=== PATIENT | female | born 2000 | race Caucasian/White ===

== ENCOUNTER 2018-05-08 00:48 | Emergency (ER) | payer BC ==
[~2018-05-08] VITALS: Ht 167.6 cm; Wt 97.7 kg
[2018-05-08 01:01] VITALS: BP 128/82; TEMP 98.6
[2018-05-08 02:09] VITALS: PULSE 110
== END 2018-05-08 02:09 | disposition home or self-care (01) ==
LOC: COL.ER 00:48
DX: N61.0 Mastitis without abscess (principal)

== ENCOUNTER → 2020-04-11 | Outpatient (CLI) | payer BC | LOC: COL.LAB 17:25 | DX: Z20.828 Contact with and (suspected) exposure to other viral communicable diseases (principal) ==

== ENCOUNTER 2020-06-08 00:02 | Emergency (ER) | payer BC ==
[~2020-06-08] VITALS: Ht 167.6 cm; Wt 113.6 kg
[2020-06-08 00:11] VITALS: TEMP 98.2
[2020-06-08 01:31] VITALS: BP 134/85; PULSE 105
== END 2020-06-08 01:35 | disposition home or self-care (01) ==
LOC: COL.ER 00:02
DX: R04.0 Epistaxis (principal)

== ENCOUNTER 2020-10-29 06:19 | Emergency (ER) | payer BC ==
[~2020-10-29] VITALS: Ht 167.6 cm; Wt 109.1 kg
[2020-10-29 06:24] VITALS: TEMP 97.8
[2020-10-29] MEDS ORDERED: CELEXA 20MG20 MG/TAB PO (06:27)
[2020-10-29] MEDS ORDERED: LEVBID0.375 MG PO (06:27)
[2020-10-29] MEDS ORDERED: VYVANSE40 MG PO (06:27)
[2020-10-29 07:52] LABS: STREP SCREEN NEGATIVE
[2020-10-29 08:08] LABS: BASO # 0.1 (0.0-0.2); BASO % 0.5 % (0.0-2.0); EOS # 0.3 (0.0-0.7); EOS % 1.7 % (0-4.0); GRAN % 81.1 % (42.2-75.2); HEMATOCRIT 44.6 % (37.0-47.0); HEMOGLOBIN 14.9 g/dl (12.5-16.0); LYMPH # 1.9 (1.2-3.4); LYMPH % 11.1 % (20.0-51.0); MEAN CELL VOLUME 89 fl (80.0-100.0); MEAN CORPUSCULAR HEMOGLOBIN 30 pg (27.0-31.0); MEAN CORPUSCULAR HGB CONC 33 g/dl (33.0-37.0); MEAN PLATELET VOLUME 9.9 fl (7.4-10.4); MONO # 0.9 (0.1-0.6); PLATELET COUNT 294 K/mm3 (130-400); RED BLOOD COUNT 5.02 M/mm3 (4.10-5.30); REDCELL DISTRIBUTION WIDTH-CV 13.2 % (11.5-14.5)
[2020-10-29 08:16] LABS: CALCIUM 8.7 mg/dL (8.4-10.2); CREATININE, serum 0.62 (0.52-1.25); POTASSIUM 3.8 mmol/L (3.4-5.0)
[2020-10-29] MEDS ORDERED: NAPROXEN 3375 MG/TAB PO (09:02)
[2020-10-29] MEDS ORDERED: ATIVAN 1MG T1 MG/TAB PO (09:02)
[2020-10-29] MEDS ORDERED: VENTOLIN0.09 MG IH (09:02)
[2020-10-29 09:06] VITALS: BP 146/94; PULSE 114
== END 2020-10-29 09:15 | disposition home or self-care (01) ==
LOC: COL.ER 06:19
PROVIDERS: Emergency Medicine
DX: B34.9 Viral infection, unspecified (principal); F17.290 Nicotine dependence, other tobacco product, uncomplicated; Z20.822 Contact with and (suspected) exposure to COVID-19; Z88.1 Allergy status to other antibiotic agents
CPT/HCPCS: J1100

== ENCOUNTER 2021-05-27 11:07 | Emergency (ER) | payer BC ==
[~2021-05-27] VITALS: Ht 167.6 cm; Wt 97.7 kg
[~2021-05-27 11:07] MED LIST: ATIVAN 1MG T1 MG/TAB PO; CELEXA 20MG20 MG/TAB PO; LEVBID0.375 MG PO; NAPROXEN 3375 MG/TAB PO; VENTOLIN0.09 MG IH; VYVANSE40 MG PO
[2021-05-27 11:33] LABS: COLLECTION METHOD CLEAN CATCH
[2021-05-27 11:41] LABS: PH 6 (5-8); URINE APPEARANCE Clear; URINE BACTERIA None Seen /hpf; URINE BILIRUBIN Negative (NEGATIVE); URINE BLOOD 2+ (NEGATIVE); URINE COLOR Yellow; URINE GLUCOSE Negative (NEGATIVE); URINE KETONE Negative (NEGATIVE); URINE LEUKOCYTE ESTERASE 2+ (NEGATIVE); URINE NITRATE Negative (NEGATIVE); URINE PROTEIN(semi-quant) Negative (NEGATIVE); URINE RBC 0-2 /hpf; URINE UROBILINOGEN Negative (NEGATIVE)
[2021-05-27 11:48] LABS: BASO # 0.1 K/mm3 (0.0-0.2); BASO % 0.5 % (0.0-2.0); EOS # 0.1 K/mm3 (0.0-0.7); EOS % 0.3 % (0-4.0); GRAN # 13.5 K/mm3 (1.4-6.5); GRAN % 77.4 % (42.2-75.2); HEMATOCRIT 44.3 % (37.0-47.0); LYMPH # 2.6 K/mm3 (1.2-3.4); LYMPH % 15.2 % (20.0-51.0); MEAN CELL VOLUME 89 fl (80.0-100.0); MEAN CORPUSCULAR HEMOGLOBIN 30 pg (27.0-31.0); MEAN CORPUSCULAR HGB CONC 34 g/dl (33.0-37.0); MEAN PLATELET VOLUME 9.6 fl (7.4-10.4); MONO # 1.1 K/mm3 (0.1-0.6); MONO % 6.1 % (1.7-9.3); PLATELET COUNT 293 K/mm3 (130-400); RED BLOOD COUNT 4.98 M/mm3 (4.10-5.30); REDCELL DISTRIBUTION WIDTH-CV 12.8 % (11.5-14.5)
[2021-05-27 12:17] LABS: ALBUMIN 4.1 gm/dL (3.5-5.0); BILIRUBIN,TOTAL 1.8 mg/dL (0.2-1.2); CALCIUM 9.9 mg/dL (8.4-10.2); CREATININE, serum 0.77 mg/dL (0.57-1.11); POTASSIUM 3.7 mmol/L (3.5-4.5); TOTAL PROTEIN 7.8 gm/dL (6.2-8.1)
[2021-05-27 12:45] VITALS: BP 125/69; PULSE 92; TEMP 98.7
[2021-05-27] MEDS ORDERED: NORCO 325 MG-51 TAB PO (22:25)
[2021-05-27] MEDS ORDERED: COLACE 100100 MG/CAP PO (22:26)
[2021-05-27] MEDS ORDERED: MOTRIN 600600 MG/TAB PO (22:26)
== END 2021-05-27 12:45 | disposition home or self-care (01) ==
LOC: COL.ER 11:07
PROVIDERS: Emergency Medicine
DX: R10.30 Lower abdominal pain, unspecified (principal); R00.0 Tachycardia, unspecified; D72.829 Elevated white blood cell count, unspecified; R79.89 Other specified abnormal findings of blood chemistry; K58.9 Irritable bowel syndrome, unspecified; Z32.02 Encounter for pregnancy test, result negative
CPT/HCPCS: J2405; J7030

== ENCOUNTER 2021-05-27 18:45 | Day surgery (SDC) | payer BC ==
[~2021-05-27] VITALS: Ht 167.6 cm; Wt 96.2 kg
[2021-05-27] MEDS ORDERED: NORCO 325 MG-51 TAB PO (22:25)
[2021-05-27] MEDS ORDERED: COLACE 100100 MG/CAP PO (22:26)
[2021-05-27] MEDS ORDERED: MOTRIN 600600 MG/TAB PO (22:26)
[2021-05-27 22:55] VITALS: BP 115/67; PULSE 97; TEMP 98.2
[2021-05-27 23:10] VITALS: BP 121/64; PULSE 99
[2021-05-27 23:25] VITALS: BP 114/58; PULSE 95
--- NOTE | 2021-05-27 23:30 | NUR ---
patient states they take dycyclomine at home but unable to change on med req due to meds being finalized.
[2021-05-27 23:40] VITALS: BP 120/63; PULSE 93
--- NOTE | 2021-05-27 23:50 | NUR ---
PATIENT IS ALERT AND ORIENTED X3. SITTING IN BED. PATIENT HAS 3 LAPROSCOPIX SITES TO ABDOMEN. EDGES WELL APPROXIMATED. OPEN TO AIR. PATIENT HAS IV TO LEFT AC INFUSING LR. PATIENT TOLERATING SIPS OF WATER. PARENTS AT BEDSIDE AND LEFT. PATIENT DENIES PAIN OR FURTHER NEEDS AT THIS TIME. CALL LIGHT WITHIN REACH. ADMISSIONS ASSESSMENTS DONE. PATIENT TO DISCHARGE IN AM.
[2021-05-28 00:10] VITALS: BP 113/56; PULSE 87
[2021-05-28 00:40] VITALS: BP 111/66; PULSE 87
[2021-05-28 01:40] VITALS: BP 116/62; PULSE 77
[2021-05-28 02:40] VITALS: BP 121/58; PULSE 80; TEMP 97.9
[2021-05-28 04:27] VITALS: BP 116/53; PULSE 68; TEMP 98
--- NOTE | 2021-05-28 05:50 | NUR ---
PATIENT SLEPT THROUGH THE REST OF THE NIGHT. DENIES PAIN OR FURTHER NEEDS. WILL DISCHARGE THIS AM. CALL LIGHT WITHIN REACH. WILL REPORT TO DAYSHIFT.
[2021-05-28 08:00] VITALS: BP 119/52; PULSE 77; TEMP 98.1
--- NOTE | 2021-05-28 09:40 | NUR ---
Patient alert and oriented, answers questions appropriately. See assessment. Abdomen soft, tender, non distended. Bowel sounds active x4 quads. +Flatus. Lap sites x3 to abdomen with edges well approximated, no redness or drainage noted. Post op exercises reviewed with patient. No c/o at this time.
--- NOTE | 2021-05-28 10:20 | NUR ---
Discharge instructions reviewed with patient and parent, verbalized understanding. Discharged ambulatory to auto/home with parent at 0925.
== END 2021-05-28 09:25 | disposition home or self-care (01) ==
LOC: COL.ER 18:45 → SURG 20:18 → SDCO 20:18 → COL.ER 20:18 → SURG 20:19 → SDCO 05-28 09:25
DX: K35.80 Unspecified acute appendicitis (principal); K65.8 Other peritonitis; F32.A Depression, unspecified; F41.9 Anxiety disorder, unspecified; F17.290 Nicotine dependence, other tobacco product, uncomplicated; Z79.899 Other long term (current) drug therapy; K58.0 Irritable bowel syndrome with diarrhea; Z97.5 Presence of (intrauterine) contraceptive device
CPT/HCPCS: OP; J0330; J0690; J0744; J1100; J1885; J2250; J2405; J2704; J3010; J7030; J7120; Q9967